=== PATIENT | female | born 1960 | race Caucasian/White ===

== ENCOUNTER → 2023-06-01 | Outpatient (CLI) | payer BC, SELFPAY ==
[2023-06-01 12:38] LABS: Erythrocyte Sedimentation Rate 3 mm/hr (0-30)
[2023-06-01 13:30] LABS: ALB/GLOB Ratio 1.2 RATIO (0.9-2.4); AST(SGOT) 18 U/L (15-37); Alanine Aminotransfer ALT/SGPT 40 U/L (13-56); Albumin, Serum 4.2 g/dL (3.2-5.0); Alkaline Phosphatase 68 U/L (45-117); Anion Gap 4 (5-15); BUN 13 mg/dL (7-18); CRP < 2.90 mg/L (0.0-3.0); Calcium,Total 9.2 mg/dL (8.5-10.1); Chloride 108 mmol/L (98-107); Creatinine, Serum 0.76 mg/dL (0.55-1.02); EST Glomerular Filtration Rate 82 mL/min (>60); Est Glom Filt Rate - Afr Amer 99 mL/min (>60); Globulin 3.4 g/dL (2.2-4.2); Glucose 99 mg/dL (74-106); Potassium 4.3 mmol/L (3.5-5.1); Protein, Total 7.6 g/dL (6.4-8.2); Sodium Level 140 mmol/L (136-145)
[2023-06-01 13:34] LABS: Absolute Lymphocyte Count 2.51 X10^3/uL (0.83-4.51); Basophil# 0.03 X10^3/uL; Basophil% 0.4 % (0-1); Eosinophil# 0.13 X10^3/uL; Eosinophils% 1.8 % (0-5); Hemoglobin 13.9 g/dL (12.0-15.0); Lymphocyte # 2.51 X10^3/ul (0.83-4.51); Lymphocyte % 35.5 % (19-41); Mean Corp Hgb Conc 32.3 g/dL (32-36); Mean Corpuscular Hgb 31.2 pg (27.0-32.0); Mean Corpuscular Volume 96.6 fL (81-99); Monocyte# 0.42 X10^3/uL; Monocyte% 5.9 % (0-10); NRBC Flagged by Analyzer 0 % (0-5); Neutrophil # 3.97 X10^3/uL (2.7-7.7); Neutrophil % 56.1 % (47-70); Platelet Count 249 K/mm3 (150-450); RBC Distribution Width CV 12.4 % (11.6-14.6); RBC Distribution Width SD 43.9 fl (35.1-43.9); Red Blood Count 4.45 M/mm3 (4.2-5.4); White Blood Count 7.1 K/mm3 (4.4-11.0)
== END | disposition home or self-care (01) ==
PROVIDERS: PCP Internal Medicine; Referring Provider Internal Medicine; Visit Provider Internal Medicine
DX: R10.84 Generalized abdominal pain (principal)
CPT/HCPCS: 80053; 85025; 85652; 86140

== ENCOUNTER 2023-06-15 08:26 | Day surgery (SDC) | payer BC, SELFPAY ==
[2023-06-15] VITALS (7 sets, daily range): BP systolic 87–115; BP diastolic 56–82; PULSE 58–76; RESP 16; TEMP 36.1–36.8; O2SAT 99–100; BMI 25.9
--- NOTE | 2023-06-15 | COLBX_PTH ---
PATIENT: VIDA EAST LOC: EN U#:[id number] AGE/SX: 62/F ROOM: RE06/15/[address]: Dr. Deloris Ovalle MD : 1960 BED: DIS: 06/15/2023 SPEC #: [id number] RECD: 06/15/23 12:06 STATUS: [place] CINTIA #: [id number] JENN: 06/15/23 00:[address]: Deloris Ovalle DEPT: SURGICAL PATHOLOGY RECD BY: Glenda Rodriguez ENTERED: 06/15/23 13:17 SP TYPE: COLON BX OTHR DR: Dr. Niecy Ried DO Tissues: A - Pylorus B - Ascending colon Procedures: Surgery Specimen Level IV HEADER OPERATION: Colonoscopy with biopsy, EGD with biopsy PRE-OP DIAGNOSIS: LUQ abdominal pain, epigastric abdominal pain, diarrhea, constipation TISSUE SUBMITTED: A - Prepyloric ulcer for H. pylori and histology, B - Ascending colon MICROSCOPIC DIAGNOSIS A. Prepyloric ulcer, biopsy: Chronic gastritis. See comment. B. Ascending colon, biopsy: Hyperplastic polyp. AM:jonane 06/16/2023 COMMENT A. The results of immunohistochemistry for Helicobacter pylori will be reported separately ([id number]). MICROSCOPIC DESCRIPTION Slides are reviewed. GROSS DESCRIPTION A - Received in fixative is one container labeled with the patient's name and designated prepyloric ulcer. The specimen consists of one irregular fragment of light jain soft tissue that measures 0.3 x 0.3 x 0.1 cm. The specimen is totally submitted in one cassette. B - Received in fixative is one container labeled with the patient's name and designated ascending colon. The specimen consists of one irregular fragment of light jain soft tissue that measures 0.3 x 0.2 x 0.1 cm. The specimen is totally submitted in one cassette. / AM:joanne 06/15/2023 TC:3 CPT: 23381 x2
--- NOTE | 2023-06-15 08:42 | HP.PCM_ITS ---
History and Physical Date of Admission: 06/15/23 Date of Service: 06/07/23 MR#: [id number] Acct: [id number] Name: VIDA EAST Rep #: [id number] : 1960 Provider: Dr. 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 Deloris Ovalle MD) Abdominal pain Bloating Constipation Diarrhea Surgical History (Updated 06/07/23 @ 13:35 by Teresa Cox) H/O oral surgery S/P appendectomy Family History (Updated 06/07/23 @ 13:36 by Teresa Cox) Father Colon cancer Diabetes Hypertension Heart diseaseGrandmother Colon cancer Social History (Updated 06/07/23 @ 13:37 by Teresa Cox) Smoking Status: Former smoker alcohol intake: current HPI HPI HPI: 62-year-old female presents due to upper abdominal pain and a cycle of explosive diarrhea versus constipation. Patient states she has increased burping and bloating. Patient states she has had decreased appetite for about a week and a half as well. Patient states the more explosive bowel movements have started about 2 to 3 weeks ago and then she will have a period of constipation where she feels like she needs to go but cannot. Patient states the issues with the bowel movements have been coming all summer but has gotten worse more recently. Patient states she does have some normal bowel moods in between. Patient had a colonoscopy in [address] Drew which was negative per the patient. Patient's father as well as maternal grandmother both diagnosed with colon cancer in their late 60s to 70s. Patient states her upper abdominal pain can happen in the middle of the night as well as before ever eating or right after. ROS General General: Yes fatigue; No weight change, appetite, colon cancer, breast cancer or weakness HEENT HEENT: No difficulty swallowing, eye injury, eye surgery, swollen glands or hoarseness Endo Endocrine: No thyroid disease, diabetes mellitus, thyroid cancer, Hair loss, heat intolerance or cold intolerance Skin Skin: No rash or changing moles Breast Breast: No left breast lump, right breast lump, nipple discharge, breast pain, abnormal mammogram, abnormal US or breast enlargement Musc Musculoskeletal: Yes arthritis; No back problems, rheumatoid arthritis, gout or joint pain Cardio Cardiovascular: No murmur, pacemaker, heart disease, atrial fibrillation, high blood pressure, heart attack, heart stent, palpitations, shortness of breat with exertion or chest pain Psych Psychiatric: No depression, anxiety or hearing voices Resp Respiratory: No shortness of breath, No sleep apnea, No cough, No COPD, No asthma, No emphysema and No wheezing Gastro Gastrointestinal: Yes abdominal pain, Yes nausea or vomiting, Yes diarrhea, Yes constipation, No blood in stool, Yes acid reflux, Yes hemorrhoids, No ulcers, No gallbladder problem and No black,tarry stools Esteban Hematologic: No blood thinners, Yes blood disorders, No bleeding, No anemia and No blood clots Neuro Neurologic: No system reviewed and no additional complaints, except as documented, No as per HPI, No abnormal gait, No abnormal hearing, No abnormal movements, No abnormal speech, No behavioral changes, No burning sensations, No confusion, No convulsions, No disequilibrium, No dizziness, No localized weakness, No frequent falls, No headache(s), No lack of coordination, No loss of vision, No memory loss, No numbness, No other visual disturbances, No radicular pain, No restless legs, No sensory deficit, No syncope, No tingling, No tremor(s), No weakness and No other Exam Const General: cooperative, healthy appearing and no acute distress Nutritional Appearance: well nourished [facility] Head: normal to inspection Resp Effort & Inspection: normal respiratory effort Auscultation: clear to auscultation bilaterally Cardio Rate: regular rate Rhythm: regular rhythm GI Inspection: non-distended Palpation: soft, no guarding and tender in the LUQ; with no rebound tenderness Skin General: no rashes or lesions noted Neuro General: patient alert, patient awake and patient oriented x3 Extrem General: no clubbing, cyanosis or edema Psych Affect: normal affect Assessment and Plan Assessment and Plan (1) LUQ abdominal pain: Status: Acute (2) Epigastric abdominal pain: Status: Acute (3) Diarrhea: Status: Acute (4) Constipation: Status: Acute Orders: Orders Colonoscopy 06/07/23 EGD 06/07/23 Medications: New pantoprazole 40 mg PO DAILY 30 tabs 4RF sucralfate Take an hour before meals and at bedtime 1 g PO QACHS 30 tabs 1RF Plan We will start Protonix as well as Carafate x1 week to see if this helps with her epigastric discomfort does sound like gastritis as it happens at night also before and after eating also with some bloating and burping. This could also have something to get the diarrhea but we will also plan to check and colonoscopy at time of EGD. I have discussed the above with the patient. I have offered the patient EGD and colonoscopy for evaluation. I have explained the risks/benefits of the procedure and described the procedure. I have discussed the risks with the patient, including but not limited to: infection, bleeding, perforation of the GI tract requiring emergency surgery, inability to complete the procedure, injury to any internal organs, complications of anesthesia, etc. - the patient understands and agrees to proceed. I have answered all the patient's questions to the patient's satisfaction and the patient has no further questions. The patient has been given instructions for the colon cleansing preparation. 1 day of clears, MiraLAX Dulcolax split prep. Deloris Ovalle M.D. Pager: [phone] [facility] [address] [place] [address], [facility], [address] [place] [address] Office: [phone] Coding Level of Care Code Off vis,new,level 3 Diagnoses LUQ abdominal pain R10.12 Epigastric abdominal pain R10.13 Diarrhea R19.7 Constipation K59.00 06/08/23 0825 <Electronically signed by Deloris Ovalle MD> Date Deloris Ovalle MD
[2023-06-15] MEDS: Lactated Ringers 1,000 ML 15 ML IV (08:52)
--- NOTE | 2023-06-15 10:00 | IMM_PTH ---
PATIENT: VIDA EAST LOC: EN U#:[id number] AGE/SX: 62/F ROOM: RE06/15/[address]: Dr. Deloris Ovalle MD : 1960 BED: DIS: 06/15/2023 SPEC #: [id number] RECD: 06/15/23 14:15 STATUS: [place] REHerminio #: [id number] JENN: 06/15/23 10:[address]: Deloris Ovalle DEPT: IMMUNOHISTOCHEMISTRY RECD BY: Paloma Benavides ENTERED: 06/15/23 14:16 SP TYPE: IMMUNO OTHR DR: Dr. Niecy Reid, Tissues: A - Pyloric portion of stomach Procedures: H Pylori (initial) PHYSICIAN & INSTITUTION [place] [id number] SPECIMEN INFORMATION: Tissue Source: A - Prepyloric ulcer Clinical Info: LUQ abdominal pain, epigastric abdominal pain, diarrhea, constipation Specimen Number: [id number] CPT code: 96119 METHODOLOGY: Deparaffinized sections of prefer/formalin-fixed tissue or PAP/DQ stained slides are incubated with monoclonal/polyclonal antibodies/oligonucleotide probes. Localization is made via biotin free immunoperoxidase method. Appropriate controls are performed and reacted as expected. Results on target cell population are indicated in the following table: RESULTS: ANTIBODY / CLONE RESULT Block A H Pylori (polyclonal) negative These tests were developed and their performance characteristics determined by [facility]. They may not have been cleared or approved by the U.S. Food and Drug Administration. The FDA has determined that such clearance or approval is not necessary. The above immunohistochemical/dualISH markers are ordered and reviewed by the Pathologist. INTERPRETATION: A. Prepyloric ulcer, biopsy: Negative for Helicobacter pylori organisms. AM:joanne 06/16/2023
--- NOTE | 2023-06-15 10:27 | OP.EGD_ITS ---
Patient Name: Terri Mason Procedure Date: 06/15/2023 9:40 AM Date of : 1960 Age: 62 Procedure: Upper GI endoscopy Indications: Epigastric abdominal pain, Abdominal pain in the left upper quadrant Providers: Deloris Ovalle MD Referring MD: Deloris Ovalle MD Medicines: Monitored Anesthesia Care Patient Profile: This is a 62 year old female. Complications: No immediate complications. Procedure: Pre-Anesthesia Assessment: - Prior to the procedure, a History and Physical was performed, and patient medications and allergies were reviewed. The patient's tolerance of previous anesthesia was also reviewed. The risks and benefits of the procedure and the sedation options and risks were discussed with the patient. All questions were answered, and informed consent was obtained. Prior Anticoagulants: The patient has taken no anticoagulant or antiplatelet agents. ASA Grade Assessment: Per anesthesia. After reviewing the risks and benefits, the patient was deemed in satisfactory condition to undergo the procedure. After obtaining informed consent, the endoscope was passed under direct vision. Throughout the procedure, the patient's blood pressure, pulse, and oxygen saturations were monitored continuously. The pediatric colonoscope was introduced through the mouth, and advanced to the second part of duodenum. The upper GI endoscopy was accomplished without difficulty. The patient tolerated the procedure well. Scope In: 9:52:20 AM Scope Out: 9:56:43 AM Total Procedure Duration Time 0 hours 4 minutes 23 seconds Findings: The Z-line was regular. One non-bleeding superficial gastric ulcer with pigmented material was found in the prepyloric region of the stomach. The lesion was 4 mm in largest dimension. Biopsies were taken with a cold forceps for histology. Biopsies were taken with a cold forceps for Helicobacter pylori testing. The cardia and gastric fundus were normal on retroflexion. The examined duodenum was normal. Impression: - Z-line regular. - Non-bleeding gastric ulcer with pigmented material. Biopsied. - Normal examined duodenum. Recommendation: - Await pathology results. - Discharge patient to home (ambulatory). - Resume previous diet. - Use Protonix (pantoprazole) 40 mg PO BID for 2 weeks. - Use Protonix (pantoprazole) 40 mg PO daily after 2 weeks of BID- continue on daily indefinitely. - Use sucralfate tablets 1 gram PO QID for 1 month. - Continue present medications. Procedure Code(s): --- Professional --- 82640, Esophagogastroduodenoscopy, flexible, transoral; with biopsy, single or multiple Diagnosis Code(s): --- Professional --- K25.9, Gastric ulcer, unspecified as acute or chronic, without hemorrhage or perforation R10.13, Epigastric pain R10.12, Left upper quadrant pain CPT copyright 2021 [employer]. All rights reserved. The codes documented in this report are preliminary and upon director surface transportation review may be revised to meet current compliance requirements. MD Deloris Marrero MD 06/15/2023 10:26:48 AM This report has been signed electronically. Number of Addenda: 0 Note Initiated On: 06/15/2023 9:40 AM
--- NOTE | 2023-06-15 10:27 | OP.CCLET_ITS ---
06/15/2023 Niecy Reid [address] [place] [address] Re : Upper GI endoscopy procedure for Terri Mason Dear Dr. Reid This procedure was performed on Thursday, June 15, 2023. My impressions and recommendations are as follows: Impressions : - Z-line regular. - Non-bleeding gastric ulcer with pigmented material. Biopsied. - Normal examined duodenum. Recommendations : - Await pathology results. - Discharge patient to home (ambulatory). - Resume previous diet. - Use Protonix (pantoprazole) 40 mg PO BID for 2 weeks. - Use Protonix (pantoprazole) 40 mg PO daily after 2 weeks of BID- continue on daily indefinitely. - Use sucralfate tablets 1 gram PO QID for 1 month. - Continue present medications. My findings are described in the full procedure note, which is enclosed. If I can be of further assistance, please feel free to contact me at Doctor phone number(s): , Work: . Sincerely, MD Deloris Marrero MD 06/15/2023 10:26:48 AM This report has been signed electronically.
--- NOTE | 2023-06-15 11:06 | OP.COLON_ITS ---
Patient Name: Terri Mason Procedure Date: 06/15/2023 9:56 AM Date of : 1960 Age: 62 Procedure: Colonoscopy Indications: Diarrhea, Constipation Providers: Deloris Ovalle MD Referring MD: Deloris Ovalle MD Medicines: Monitored Anesthesia Care Patient Profile: Last Colonoscopy: 2019. This is a 62 year old female. Complications: No immediate complications. Procedure: Pre-Anesthesia Assessment: - Prior to the procedure, a History and Physical was performed, and patient medications and allergies were reviewed. The patient's tolerance of previous anesthesia was also reviewed. The risks and benefits of the procedure and the sedation options and risks were discussed with the patient. All questions were answered, and informed consent was obtained. Prior Anticoagulants: The patient has taken no anticoagulant or antiplatelet agents. ASA Grade Assessment: Per anesthesia. After reviewing the risks and benefits, the patient was deemed in satisfactory condition to undergo the procedure. After I obtained informed consent, the scope was passed under direct vision. Throughout the procedure, the patient's blood pressure, pulse, and oxygen saturations were monitored continuously. The pediatric colonoscope was introduced through the anus and advanced to the cecum, identified by the ileocecal valve. The colonoscopy was performed without difficulty. The patient tolerated the procedure well. The quality of the bowel preparation was good. Scope In: 9:58:17 AM Scope Withdrawal Time 0 hours 8 minutes 59 seconds Scope Out: 10:14:53 AM Total Procedure Duration Time 0 hours 16 minutes 36 seconds Findings: The perianal and digital rectal examinations were normal. The entire examined colon appeared normal on direct and retroflexion views. A less than 5 mm polyp was found in the ascending colon. The polyp was sessile. The polyp was removed with a cold biopsy forceps. Resection and retrieval were complete. Impression: - The entire examined colon is normal on direct and retroflexion views. - One less than 5 mm polyp in the ascending colon, removed with a cold biopsy forceps. Resected and retrieved. Recommendation: - Discharge patient to home. - Resume previous diet. - Continue present medications. - Repeat colonoscopy in 5-10 years for surveillance based on pathology results. Procedure Code(s): --- Professional --- 43789, Colonoscopy, flexible; with biopsy, single or multiple Diagnosis Code(s): --- Professional --- D12.2, Benign neoplasm of ascending colon R19.7, Diarrhea, unspecified K59.00, Constipation, unspecified CPT copyright 2021 [employer]. All rights reserved. The codes documented in this report are preliminary and upon carpenter streetcar review may be revised to meet current compliance requirements. MD Deloris Marrero MD 06/15/2023 11:06:04 AM This report has been signed electronically. Number of Addenda: 0 Note Initiated On: 06/15/2023 9:56 AM
--- NOTE | 2023-06-15 11:06 | OP.CCLET_ITS ---
06/15/2023 Niecy Reid [address] [place] [address] Re : Colonoscopy procedure for Terri Mason Dear Dr. Reid This procedure was performed on Thursday, June 15, 2023. My impressions and recommendations are as follows: Impressions : - The entire examined colon is normal on direct and retroflexion views. - One less than 5 mm polyp in the ascending colon, removed with a cold biopsy forceps. Resected and retrieved. Recommendations : - Discharge patient to home. - Resume previous diet. - Continue present medications. - Repeat colonoscopy in 5-10 years for surveillance based on pathology results. My findings are described in the full procedure note, which is enclosed. If I can be of further assistance, please feel free to contact me at Doctor phone number(s): , Work: . Sincerely, MD Deloris Marrero MD 06/15/2023 11:06:04 AM This report has been signed electronically.
== END 2023-06-15 11:15 | disposition home or self-care (01) ==
LOC: EN 08:31 → AC 08:32
PROVIDERS: PCP Internal Medicine; Referring Provider Surgery; Visit Provider Surgery
PROC: 0DJD8ZZ Inspection of Lower Intestinal Tract, Via Natural or Artificial Opening Endoscopic (ICD-10-PCS; CPT 45378; principal; 2023-06-15 09:55)
DX: K29.50 Unspecified chronic gastritis without bleeding (principal); K25.9 Gastric ulcer, unspecified as acute or chronic, without hemorrhage or perforation; Z80.0 Family history of malignant neoplasm of digestive organs; K63.5 Polyp of colon; Z87.891 Personal history of nicotine dependence; Z79.899 Other long term (current) drug therapy; K21.9 Gastro-esophageal reflux disease without esophagitis; Z90.49 Acquired absence of other specified parts of digestive tract
CPT/HCPCS: 45380; 43239; 88305; 88342; J7120; J2405

== ENCOUNTER → 2025-04-30 | Outpatient (CLI) | payer BC, SELFPAY ==
--- NOTE | 2025-04-30 13:40 | BI_ITS ---
EXAM: SCRN MAMM (CAD)W/ALVARO BILAT DATE: 04/30/2025 CLINICAL HISTORY: F, Age 64 y/o , SCREENING No family history. TECHNIQUE: SCRN MAMM (CAD)W/ALVARO BILAT COMPARISON: Baseline study. FINDINGS: TISSUE DENSITY: The breasts are almost entirely fatty. Bilateral Breast Mammographic Findings: No significant masses, calcifications or other abnormalities are identified. No suspicious masses, areas of developing architectural distortion, or suspicious calcifications. BI/SCRN MAMM (CAD)W/ALVARO BILAT IMPRESSION: Negative mammogram. OVERALL FINAL ASSESSMENT BI-RADS 1: NEGATIVE. RECOMMENDATION: Routine annual follow-up in 1 Year A letter with findings and recommendations will be mailed to the patient. Reading Location: [id number]
--- NOTE | 2025-04-30 13:46 | BD_ITS ---
PROCEDURE: DEXA BONE DENSITY STUDY 04/30/2025 REASON FOR EXAM: F, age 64 y/o . Postmenopausal. TECHNIQUE: DEXA BONE DENSITY STUDY COMPARISON: None FINDINGS: BMD and T-SCORES Lumbar spine: 0.949 g/cm2, T-score -0.9 Levels: L1 through L4 Left femoral neck: 0.754 g/cm2, T-score -0.9 Femoral neck comparison data not recommended for monitoring change. Left total hip: 0.870 g/cm2, T-score -0.6 Right femoral neck: 0.748 g/cm2, T-score -0.9 Femoral neck comparison data not recommended for monitoring change. Right total hip: 0.864 g/cm2, T-score -0.6 The World Health Organization has defined the following categories based on bone density: Normal bone density: T-score equal to or greater than -1.0 Osteopenia: T-score between -1.0 and -2.5 Osteoporosis: T-score equal to or less than -2.5 FRAX (or Comparable) Fracture Risk Assessment: 10 Year Probability of Fracture: Major Osteoporotic Fracture: 7.7% Hip Fracture: 0.5% (Note: FRAX is not to be reported in setting of normal range bone density, osteoporosis on DEXA, known history of osteoporosis, prior osteoporotic hip or vertebral fracture, or for any patient undergoing pharmacological treatment for bone loss.) The National Osteoporosis Foundation (NOF) recommends pharmacological treatment for patients with a FRAX 10-year risk of 3% or higher for a hip fracture, or 20% or higher for a major osteoporotic fracture, to prevent osteoporosis and reduce fracture risk. The patient does not meet the pharmacological treatment recommendations for prevention of osteoporosis. BD/Dexa Bone Density Study IMPRESSION: NORMAL T-SCORES. Recommend follow-up as clinically warranted. Reading Location: [facility]
== END | disposition home or self-care (01) ==
LOC: OPBD 13:39
PROVIDERS: PCP Internal Medicine; Referring Provider Internal Medicine; Visit Provider Internal Medicine
DX: Z13.820 Encounter for screening for osteoporosis (principal); Z78.0 Asymptomatic menopausal state; Z12.31 Encounter for screening mammogram for malignant neoplasm of breast
CPT/HCPCS: 77063; 77067; 77080

== ENCOUNTER 2025-07-05 09:00 | Outpatient (RCR) | payer BC, SELFPAY ==
--- NOTE | 2025-06-26 09:06 | HP.PTEVAL ---
Patient's Visit Information Visit Information Visit Information: VIDA EAST is a 64 year old F referred to Physical Therapy by Dr. Niecy Reid DO with a diagnosis of R hip pain trochanteric bursitis. Date of Evaluation: 06/26/25 Physical Therapist: Brayan Solorzano, DPT, OCS, CSCS Visit Plan Frequency: 3x /Week Duration: 4-6 Weeks Plan: 3x/week for 2-4 weeks to start... IE HEP: s/l itb stretch R and strap supine itb stretch R 30 5x each 2x/day, avoid aggravating activities, approp sleep position. Treat with US nonthermal R GT, rollout R ITB and priformis glut area, stretch ITB and teach HEP for HS and quad stretches. PRogress to hip stabs strength on mat to HEP as tolerated. Subjective Subjective: Saw Dr. Reid last week and R lateral hip has been hurting gently since April. Hurt at night sleeping on it and has gotten worse. Had x rays; thinks bursitis. Has been pretty active until this. Was doing 3x/week strength training, 2x/week yoga and walking. Uses [employer]. Now that hurts. Walked ysterday for first time in a couple weeks that she could get out adn walk the park. doctor gave her prednisone but is just taking motrin. Sleeping was tough before the motrin. Not employed, retired. Basic ADLs all I. steps had to crawl last week, better this week. Not suree why. hobbies: grandkids, this keeps her from walking with them too much. Worse after sitting for a while. Pain R lateral hip: Pain Intensity (Out of 10): 0 Pain Intensity Range: 0 and 8 Objective Objective: Wallks with R antalgia intiially up from chair wihcih smooths out. Trasnfers chair and bed I. Tender on R GT and ITB, tightness at ITB B and prirformis. Min tightness HS adn quad. B. AROM B hips symmetrical and knees and ankles WFL, some pain R er, IR on R but mild. - hip scour. hip and core strength 3+ B with instability in seated testing. - CHELE, - FADDIR. reflexes 2/3 patella ayleen achilles B. Sensation LE WNL to gross light touch B. Balance/Special Test Scores Lower Extremity Functional Score: 44 Goals Goal 1:: sleep without interruption from pain. Goal Time Frame: 4-6 Weeks Goal 2:: Pain in r hip 90% bettter adn 1/10 at worst. Goal Time Frame: 4-6 Weeks Goal 3:: I aprporp-iate HEP streength hip and stretch legs to minimize future problems. Goal Time Frame: 4-6 Weeks Goal 4:: LEFS score 54 Goal Time Frame: 4-6 Weeks Goal 5:: Hike and play with grandchildren without increased pain Goal Time Frame: 4-6 Weeks Rehabilitation Potential Physical Therapy Diagnosis: tightness in R itb , trochanter tenderness and pain. Limiting sleep adn activity. Rehabilitation Potential: Good Anticipated Interventions Patient/Client Instruction: Educate patient on: Condition and Plan of Care For the Purpose of:: To decrease pain, To increase ROM, To improve nutrient delivery to tissue, To increase tolerance to activity/condition/position, To improve ability of physical actions for home/community/work/leisure and To improve gait and locomotor functions Therapeutic Exercise to Include: Strength training, Postural training, Flexibilty training, Gait and locomotor training, Passive ROM and Active ROM For the Purpose of:: To decrease pain, To increase ROM, To improve nutrient delivery to tissue, To improve muscle performance and motor function, To increase tolerance to activity/condition/position, To improve ability of physical actions for home/community/work/leisure and To improve gait and locomotor functions Manual Therapy Techniques to Include: Mobilization, Passive ROM and Soft tissue mobilization For the Purpose of:: To decrease pain, To increase ROM, To improve nutrient delivery to tissue, To improve muscle performance and motor function, To increase tolerance to activity/condition/position, To improve ability of physical actions for home/community/work/leisure and To improve gait and locomotor functions Ultrasound (thermal/non thermal): Yes For the Purpose of:: To decrease pain, To increase ROM and To improve nutrient delivery to tissue Text: Thank you for the opportunity to evaluate your patient. For Medicare and Medicare HMO plans, please review the plan of care and approve it. It will need to be FAXED BACK to us at [phone] for Medicare purposes. For Medicare only, by signing this I certify the plan of care. Please let me know if there are questions or concerns regarding this plan of care. Physician Signature: Date:
--- NOTE | 2025-08-22 15:10 | HP.PT.NRP ---
Patient Information Patient Information: VIDA EAST was seen in my office for initial evaluation on 06/26/25. The following Plan of Care was established for this patient: POC Established Initial Frequency: 3x /Week Initial Duration: 4-6 Weeks Anticipated Interventions Patient/Client Instruction: Educate patient on: Condition and Plan of Care For the Purpose of:: To decrease pain, To increase ROM, To improve nutrient delivery to tissue, To increase tolerance to activity/condition/position, To improve ability of physical actions for home/community/work/leisure and To improve gait and locomotor functions Therapeutic Exercise to Include: Strength training, Postural training, Flexibilty training, Gait and locomotor training, Passive ROM and Active ROM For the Purpose of:: To decrease pain, To increase ROM, To improve nutrient delivery to tissue, To improve muscle performance and motor function, To increase tolerance to activity/condition/position, To improve ability of physical actions for home/community/work/leisure and To improve gait and locomotor functions Manual Therapy Techniques to Include: Mobilization, Passive ROM and Soft tissue mobilization For the Purpose of:: To decrease pain, To increase ROM, To improve nutrient delivery to tissue, To improve muscle performance and motor function, To increase tolerance to activity/condition/position, To improve ability of physical actions for home/community/work/leisure and To improve gait and locomotor functions Ultrasound (thermal/non thermal): Yes For the Purpose of:: To decrease pain, To increase ROM and To improve nutrient delivery to tissue Last Seen Last Seen: This patient was last seen in our office 07/05/25. Pertinent comments regarding their Physical therapy will appear below: Pt seen 5 visits of POC but did not attend any furthr visits. At this point, it has been over 6 weeks and I will disocntinuee from my care. At this point I will be discontinuing this patient from physical therapy. I would be happy to see this patient again in the future if found appropriate by the physician. Thank you! Brayan Solorzano, DPT, OCS, CSCS Balance/Gait/Functional tests Balance/Special Test Scores Lower Extremity Functional Score: 44
== END 2025-07-05 19:00 | disposition home or self-care (01) ==
LOC: PT 09:00
PROVIDERS: PCP Internal Medicine; Referring Provider Internal Medicine; Visit Provider Internal Medicine
DX: M70.60 Trochanteric bursitis, unspecified hip (principal); M76.30 Iliotibial band syndrome, unspecified leg; M25.551 Pain in right hip
CPT/HCPCS: 97035; 97110; 97161